=== PATIENT | female | born 1935 | race Caucasian/White ===

== ENCOUNTER 2016-07-12 08:25 | Emergency (ER) | payer MEDICARE, MEDICAID ==
[2016-07-12] MEDS ORDERED: Sodium Chloride 0.9% 1,000 ML IV SCH (08:30)
--- NOTE | 2016-07-12 08:33 | EDM.PDOC ---
Addendum entered and electronically signed by Jose Arshad MD 08/02/16 07 :04: Addendum entered and electronically signed by Jose Arshad MD 07/30/16 20 :24: Addendum entered and electronically signed by Jose Arshad MD 07/20/16 05 :52: Addendum entered and electronically signed by Jose Arshad MD 07/14/16 08 :05: Original Note: ED HPI NEURO - General Chief Complaint: Neurological Problem Stated Complaint: [facility] Time Seen by Provider: 07/12/16 08:28 Source of Information: Reports: EMS notes reviewed, retirement records History Limitations: Reports: Other (unresponsive. ) - History of Present Illness INITIAL COMMENTS - FREE TEXT/NARRATIVE: 80-year-old female presents the ED per [facility]. She was found unresponsive this morning. She appears to have a right-sided hemiparesis compatible with a CVA that occurred sometime during the night. She is unresponsive and nonverbal. She will move her eyes when we lift her eyelids. There is no gaze palsy. She prefers to look to the left side and a poor the right side of her body. Apparently she's had a previous cerebrovascular accident and her CODE STATUS listed as DO NOT RESUSCITATE. Med list as apparent in the old chart although has not been updated does not reveal the reveal her to be on any anticoagulants or antiplatelet inhibitors. Symptom Onset Date: 07/12/16 (CVA appears to have occurred sometime during the night.) Timing/Duration: Reports: Hour(s):, Sudden onset Location (Neuro Complaint): Reports: other Quality (Neuro Complaint): Reports: weakness, other (Nonverbal) Severity: severe Improves with: Reports: None Worsens with: Reports: None Context, General: Denies: Activity, Exercise, Lifting, Sick contact, Trauma, Other Associated Symptoms: Reports: other (No noted spontaneous movements of eyes of the left side either.) Treatments MANAGER PROGRAM MANAGEMENT: Reports: Other (see below) (Patient is nonverbal.) - Related Data Allergies/ADRs: Allergies Allergy/AdvReac Type Severity Reaction Status Date / Time No Known Allergies Allergy Verified 07/12/16 08:30 Home Meds: Home Meds Bisacodyl [Dulcolax] 1 supp RECTAL DAILY PRN 07/26/13 [History] Insulin Aspart [Novolog Flexpen] SQ WMBED 07/26/13 [History] Past Medical History Cardiovascular History: Reports: CAD, Hypertension Endocrine/Metabolic History: Reports: Diabetes, type II (Uses insulin for diabetes control.) Oncologic (Cancer) History: Reports: Breast (Remains on Arimidex daily.) Social & Family History - Tobacco Use Years of Tobacco use: 10 Used Tobacco, but Quit: Yes Month Tobacco Last Used: UNKNOWN Second Hand Smoke Exposure: No - Recreational Drug Use Recreational Drug Use: No - Living Situation & Occupation Living situation: Reports: , extended care facility Occupation: retired ED ROS GENERAL - Review of Systems Review Of Systems: Unable To Obtain (Patient is nonverbal and unresponsive.) ED EXAM, NEURO - Physical Exam Exam: See Below Exam Limited By: Altered mental status General Appearance: other (She is nonverbal and not moving any of her limbs.) Eye Exam: bilateral eye: abnormal EOM (No gaze palsy.) Throat/Mouth: Normal inspection, Normal lips, Normal oropharynx, Other Head Exam: atraumatic, normocephalic, other Neck: normal inspection, supple, non-tender, full range of motion. No: carotid bruit, lymphadenopathy (L), lymphadenopathy (R) Respiratory/Chest: no respiratory distress, lungs clear, normal breath sounds, no accessory muscle use Cardiovascular: no edema, no gallop, no murmur, no rub, irregularly irregular GI/Abdominal: normal bowel sounds, soft, non tender, no organomegaly Neurological: no response to pain, Babinski (Upgoing on the left.) DTR: 0: patella (R), patella (L), achilles (R), achilles (L), 2+: bicep (R), bicep (L) Extremities: normal inspection, normal capillary refill, other (No spontaneous movement on the right side appreciated. Head and drop test is positive on the right side.). No: normal range of motion Skin Exam: Warm, Dry, Intact, Normal color, Pallor (Slightly pallid) EKG INTERPRETATION EKG Date: 07/12/16 Time: 09:15 Rhythm: a-fib (Right nares from 56-75 per minute.) Rate (beats/min): 71 [place]: normal P-wave: absent QRS: normal ST-T: other (Nonspecific flattening and T-wave inversion V4 to V6 one and aVL.) QT: normal Course - Vital Signs Last Recorded V/S: Last Vital Signs Temp 36.9 C 07/12/16 08:31 Pulse 90 07/12/16 08:31 Resp 16 07/12/16 08:31 BP 125/88 07/12/16 08:31 Pulse Ox - Orders/Labs/Meds Orders: Active Orders 24 hr Category Date Time Status Blood Glucose Check, Bedside [RC] ONETIME Care 07/12/16 08:31 Active Blood Glucose Check, Bedside [RC] ONETIME Care 07/12/16 09:45 Active Blood Glucose Check, Bedside [RC] ONETIME Care 07/12/16 10:24 Active EKG Documentation Completion [RC] STAT Care 07/12/16 08:29 Active Oxygen Therapy [RC] ASDIRECTED Care 07/12/16 09:07 Active Chest 1V Frontal [CR] Stat Exams 07/12/16 08:28 Taken CULTURE URINE [RM] Stat Lab 07/12/16 10:01 Received Sodium Chloride 0.9% [Normal Saline] 1,000 ml Med 07/12/16 08:30 Active IV ASDIRECTED Medication Orders Sodium Chloride (Normal Saline) 1,000 mls @ 125 mls/hr IV ASDIRECTED ÓSCAR Last Admin: 07/12/16 09:54 Dose: 125 mls/hr Labs: Laboratory Tests 07/12/16 07/12/16 07/12/16 Range/Units 08:56 09:02 09:02 WBC 9.01 (3.98-10.04) K/mm3 RBC 4.59 (3.98-5.22) M/mm3 Hgb 12.6 (11.2-15.7) gm/L Hct 40.9 (34.1-44.9) % MCV 89.1 (79.4-94.8) fl MCH 27.5 (25.6-32.2) pg MCHC 30.8 L (32.2-35.5) g/dl RDW Std Deviation 46.0 (36.4-46.3) fL Plt Count 226 (182-369) K/mm3 MPV 11.2 (9.4-12.3) fl Neutrophils % (Manual) 74 H (40-60) % Band Neutrophils % 1 (0-10) % Lymphocytes % (Manual) 13 L (20-40) % Atypical Lymphs % 0 % Immat Monocytes % (Man) 0 Monocytes % (Manual) 9 (2-10) % Eosinophils % (Manual) 2 (0.7-5.8) % Basophils % (Manual) 1 (0.1-1.2) Metamyelocytes % 0 Myelocytes % 0 Promyelocytes % 0 Blast Cells % 0 Plasma Cell % (Manual) 0 Nucleated RBCs 0.0 % Platelet Estimate Adequate RBC Morph Comment Normal PT 10.2 (8.0-13.0) SECONDS INR 0.94 APTT (22-36) SECONDS Sodium (136-145) mEq/L Potassium (3.5-5.1) mEq/L Chloride (98-107) mEq/L Carbon Dioxide (21-32) mEq/L Anion Gap (5-15) BUN (7-18) mg/dL Creatinine (0.55-1.02) mg/dL Est Cr Clr Drug Dosing Estimated GFR (MDRD) (>60) mL/min BUN/Creatinine Ratio (14-18) Glucose (83-115) mg/dL POC Glucose 48 L (83-110) mg/dL Calcium (8.5-10.1) mg/dL Total Bilirubin (0.2-1.0) mg/dL AST (15-37) U/L ALT (14-59) U/L Alkaline Phosphatase (46-116) U/L Troponin I (0.00-0.056) ng/mL C-Reactive Protein (<1.0) mg/dL B-Natriuretic Peptide (0-100) pg/mL Total Protein (6.4-8.2) g/dl Albumin (3.4-5.0) g/dl Globulin gm/dL Albumin/Globulin Ratio (1-2) Urine Color (Yellow) Urine Appearance (Clear) Urine pH (5.0-8.0) Ur Specific [place] (1.005-1.030) Urine Protein (Negative) Urine Glucose (UA) (Negative) Urine Ketones (Negative) Urine Occult Blood (Negative) Urine Nitrite (Negative) Urine Bilirubin (Negative) Urine Urobilinogen (0.2-1.0) Ur Leukocyte Esterase (Negative) Urine RBC (0-5) /hpf Urine WBC (0-5) /hpf Ur Squamous Epith Cells (0-5) /hpf Urine Bacteria (FEW) /hpf Urine Mucus (FEW) /hpf 07/12/16 07/12/16 07/12/16 Range/Units 09:02 09:02 09:02 WBC (3.98-10.04) K/mm3 RBC (3.98-5.22) M/mm3 Hgb (11.2-15.7) gm/L Hct (34.1-44.9) % MCV (79.4-94.8) fl MCH (25.6-32.2) pg MCHC (32.2-35.5) g/dl RDW Std Deviation (36.4-46.3) fL Plt Count (182-369) K/mm3 MPV (9.4-12.3) fl Neutrophils % (Manual) (40-60) % Band Neutrophils % (0-10) % Lymphocytes % (Manual) (20-40) % Atypical Lymphs % % Immat Monocytes % (Man) Monocytes % (Manual) (2-10) % Eosinophils % (Manual) (0.7-5.8) % Basophils % (Manual) (0.1-1.2) Metamyelocytes % Myelocytes % Promyelocytes % Blast Cells % Plasma Cell % (Manual) Nucleated RBCs % Platelet Estimate RBC Morph Comment PT (8.0-13.0) SECONDS INR APTT 25 (22-36) SECONDS Sodium 146 H (136-145) mEq/L Potassium 4.7 (3.5-5.1) mEq/L Chloride 110 H (98-107) mEq/L Carbon Dioxide 26 (21-32) mEq/L Anion Gap 14.7 (5-15) BUN 55 H (7-18) mg/dL Creatinine 2.3 H (0.55-1.02) mg/dL Est Cr Clr Drug Dosing TNP Estimated GFR (MDRD) 20 (>60) mL/min BUN/Creatinine Ratio 23.9 H (14-18) Glucose 53 L (83-115) mg/dL POC Glucose (83-110) mg/dL Calcium 9.4 (8.5-10.1) mg/dL Total Bilirubin 0.2 (0.2-1.0) mg/dL AST 17 (15-37) U/L ALT 21 (14-59) U/L Alkaline Phosphatase 68 (46-116) U/L Troponin I < 0.017 (0.00-0.056) ng/mL C-Reactive Protein 16.0 H* (<1.0) mg/dL B-Natriuretic Peptide 582 H (0-100) pg/mL Total Protein 7.6 (6.4-8.2) g/dl Albumin 2.9 L (3.4-5.0) g/dl Globulin 4.7 gm/dL Albumin/Globulin Ratio 0.6 L (1-2) Urine Color (Yellow) Urine Appearance (Clear) Urine pH (5.0-8.0) Ur Specific [place] (1.005-1.030) Urine Protein (Negative) Urine Glucose (UA) (Negative) Urine Ketones (Negative) Urine Occult Blood (Negative) Urine Nitrite (Negative) Urine Bilirubin (Negative) Urine Urobilinogen (0.2-1.0) Ur Leukocyte Esterase (Negative) Urine RBC (0-5) /hpf Urine WBC (0-5) /hpf Ur Squamous Epith Cells (0-5) /hpf Urine Bacteria (FEW) /hpf Urine Mucus (FEW) /hpf 07/12/16 07/12/16 07/12/16 Range/Units 09:38 10:01 10:29 WBC (3.98-10.04) K/mm3 RBC (3.98-5.22) M/mm3 Hgb (11.2-15.7) gm/L Hct (34.1-44.9) % MCV (79.4-94.8) fl MCH (25.6-32.2) pg MCHC (32.2-35.5) g/dl RDW Std Deviation (36.4-46.3) fL Plt Count (182-369) K/mm3 MPV (9.4-12.3) fl Neutrophils % (Manual) (40-60) % Band Neutrophils % (0-10) % Lymphocytes % (Manual) (20-40) % Atypical Lymphs % % Immat Monocytes % (Man) Monocytes % (Manual) (2-10) % Eosinophils % (Manual) (0.7-5.8) % Basophils % (Manual) (0.1-1.2) Metamyelocytes % Myelocytes % Promyelocytes % Blast Cells % Plasma Cell % (Manual) Nucleated RBCs % Platelet Estimate RBC Morph Comment PT (8.0-13.0) SECONDS INR APTT (22-36) SECONDS Sodium (136-145) mEq/L Potassium (3.5-5.1) mEq/L Chloride (98-107) mEq/L Carbon Dioxide (21-32) mEq/L Anion Gap (5-15) BUN (7-18) mg/dL Creatinine (0.55-1.02) mg/dL Est Cr Clr Drug Dosing Estimated GFR (MDRD) (>60) mL/min BUN/Creatinine Ratio (14-18) Glucose (83-115) mg/dL POC Glucose 213 H 159 H (83-110) mg/dL Calcium (8.5-10.1) mg/dL Total Bilirubin (0.2-1.0) mg/dL AST (15-37) U/L ALT (14-59) U/L Alkaline Phosphatase (46-116) U/L Troponin I (0.00-0.056) ng/mL C-Reactive Protein (<1.0) mg/dL B-Natriuretic Peptide (0-100) pg/mL Total Protein (6.4-8.2) g/dl Albumin (3.4-5.0) g/dl Globulin gm/dL Albumin/Globulin Ratio (1-2) Urine Color Yellow (Yellow) Urine Appearance Clear (Clear) Urine pH 5.5 (5.0-8.0) Ur Specific [place] 1.025 (1.005-1.030) Urine Protein 1+ H (Negative) Urine Glucose (UA) Trace H (Negative) Urine Ketones Negative (Negative) Urine Occult Blood Trace-lysed H (Negative) Urine Nitrite Positive H (Negative) Urine Bilirubin Negative (Negative) Urine Urobilinogen 0.2 (0.2-1.0) Ur Leukocyte Esterase 1+ H (Negative) Urine RBC 0-5 (0-5) /hpf Urine WBC 0-5 (0-5) /hpf Ur Squamous Epith Cells 0-5 (0-5) /hpf Urine Bacteria Few (FEW) /hpf Urine Mucus Few (FEW) /hpf Meds: Medications Generic Name Dose Route Start Last Admin Trade Name Freq PRN Reason Stop Dose Admin Sodium Chloride 1,000 mls @ 125 mls/hr 07/12/16 08:30 07/12/16 09:54 Normal Saline IV 125 mls/hr ASDIRECTED ÓSCAR Administration Discontinued Medications Generic Name Dose Route Start Last Admin Trade Name Lexie PRN Reason Stop Dose Admin Dextrose/Water 50 ml 07/12/16 08:58 07/12/16 09:02 Dextrose 50% In Water IVPUSH 07/12/16 08:59 50 ml ONETIME ONE Administration Dextrose/Water Confirm 07/12/16 09:00 07/12/16 09:49 Dextrose 50% In Water Administered 07/12/16 09:01 Not Given Dose 50 ml .ROUTE .[facility] ONE - Radiology Interpretation Free Text/Narrative:: 80-year-old female presents the ED per ambulance. She was found unresponsive this morning upon awakening. Appears that she has suffered a CVA during the night. She seems right hemiparesis on exam. She is unresponsive nonverbal and is not moving any of her body parts. She does not have a gaze palsy. Previous iridectomy right eye. Plan CT head routine labs ECG and a bedside blood sugar to be done. CODE STATUS is DO NOT RESUSCITATE. IV will be normal saline at 125 mils per hour and we will invoke compassionate terminal care. - Re-Assessments/Exams Free Text/Narrative Re-Assessment/Exam: 07/12/16 08:59 CT of the brain reveals advanced degenerative changes. There is no intracranial hemorrhage. There appears to be an old ilacnar nfarct in the right basal ganglia. No new infarction or edema is evident. No midline shift or densities are seen. There is an air-fluid level noted within the left maxillary sinus with mucosal thickening. Minimal mucosal thickening is noted within the left ethmoid sinus as well. Chest x-ray is a poor inspirational view. Visualized portions of the lung eid appear clear. Osseous informed at her bedside blood sugars 48. She will therefore be given an amp of D50 IV. We will try and gather when she last received her insulin dosage. Admitting note she has a chronic right arm paresis. She was ambulatory though up until this morning. 07/12/16 09:08 she last received her Levemir insulin last evening. Shows minimal response to the first amp of dextrose. Blood sugar will be repeated in one half hour 07/12/16 09:46 Blood sugar at this time is 213. She has not showed any significant improvement in neurological status. 07/12/16 09:50 remainder of her labs are now back. White count was 9.01 with hemoglobin 12.6 a hematocrit of 40.9. Platelets are 226,000. PT is 10.2 INR 0.94 PTT is 25 sodium is 146 potassium 4.7 chloride 110. Bicarbonate is 26 BUN is 55 creatinine is 2.3. EGFR is only 20 i.e. stage IV chronic kidney disease. Troponin was normal at 0.017 and albumin fractures low 2.9. Awaiting urinalysis. 07/12/16: Urinalysis shows nitrate positivity trace of red cells trace leukocyte esterase. However the micro-reveals no signs of infection. Her condition remains on changed after dextrose IV. Last blood sugar was one 159 at 10:30. She remains comatose. I suspect she has had a thrombotic stroke that is not showing up on CT scan. The remainder of her labs are normal. She is a DO NOT RESUSCITATE status and therefore she will be returned back to the prison for compassionate [facility] care. Hospital itself is nothing to offer her in regards to further acute care. It is anticipated that she will succumb to her current illness within the next 72 hours. Her primary care physician has been made aware of this. 07/12/16 10:22 Differential is back on the white count shows 74% neutrophils 1% band cells. Urinalysis shows positive nitrates trace lysed red cells and trace leukocyte esterase but no white cells or red cells reported micro-. Plan the patient will be discharged back to the prison for compassionate patrician terminal care. I will discuss case with her primary care physician Dr. Black. I did write a sliding scale further use of NovoLog insulin subcutaneously as needed. Departure - Departure Time of Disposition: 11:01 Disposition: DC/Tfer to Care Home [facility] Condition: critical Clinical Impression: Dementia associated with another disease, Diabetes mellitus type 2 Cerebrovascular accident Qualifiers: CVA mechanism: unspecified Qualified Code(s): I63.9 - Cerebral infarction, unspecified Instructions: Stroke Prevention Referrals: Kostas Fleming MD [Primary Care Provider] - Forms: ED Department Discharge Additional Instructions: Evaluation in the emergency room today in regards to arrival in an unresponsive state. Finding bedside blood sugar was 48. She was given an amp of D50 which prior blood sugars above over 250 but that is no real change in her mental status. CT scan of the brain showed no obvious intracranial hemorrhage or bleeding. It's impossible this stage to tell if there is a new stroke evident. There is a lacunar infarct in the right basal ganglia and severe diffuse small vessel ischemic changes compatible with dementia. Lab work was otherwise unremarkable. Was felt therefore that the hospital had very little to offer in terms of acute care management. Have spoken with her primary care physician Dr. Alvarado the decision made to return to the prison for compassionate terminal care. I will modify all of her medications most of which will be put on hold . Insulin will be given by sliding scale NovoLog. There will be placed on home. Please call Dr. Alvarado per on-call physician for the prison to keep the problems occur. NovoLog to be given per sliding scale as per wriiten orders. - My Orders Last 24 Hours: My Active Orders 07/12/16 08:28 Chest 1V Frontal [CR] Stat 07/12/16 08:29 EKG Documentation Completion [RC] STAT 07/12/16 08:30 Sodium Chloride 0.9% [Normal Saline] 1,000 ml IV ASDIRECTED 07/12/16 08:31 Blood Glucose Check, Bedside [RC] ONETIME 07/12/16 09:07 Oxygen Therapy [RC] ASDIRECTED 07/12/16 09:45 Blood Glucose Check, Bedside [RC] ONETIME 07/12/16 10:01 CULTURE URINE [RM] Stat 07/12/16 10:24 Blood Glucose Check, Bedside [RC] ONETIME - Assessment/Plan Last 24 Hours: My Active Orders 07/12/16 08:28 Chest 1V Frontal [CR] Stat 07/12/16 08:29 EKG Documentation Completion [RC] STAT 07/12/16 08:30 Sodium Chloride 0.9% [Normal Saline] 1,000 ml IV ASDIRECTED 07/12/16 08:31 Blood Glucose Check, Bedside [RC] ONETIME 07/12/16 09:07 Oxygen Therapy [RC] ASDIRECTED 07/12/16 09:45 Blood Glucose Check, Bedside [RC] ONETIME 07/12/16 10:01 CULTURE URINE [RM] Stat 07/12/16 10:24 Blood Glucose Check, Bedside [RC] ONETIME
[2016-07-12] MEDS ORDERED: 50% Dextrose in Water 50 ML Syringe IVPUSH ONE (08:58)
[2016-07-12] MEDS ORDERED: 50% Dextrose in Water 50 ML Syringe ONE (09:00)
--- NOTE | 2016-07-12 09:08 | CT ---
Head CT Technique: Multiple axial sections through the brain were obtained. Intravenous contrast was not utilized. Comparison: Previous head CT exam of 06/15/12. Findings: Ventricles along with basal cisterns and sulci over the convexities are moderately prominent. Diminished density noted within portions of the periventricular and subcortical white matter compatible with small vessel ischemic demyelination change. Old lacunar infarct is noted within the right basal ganglia. No other abnormal parenchymal densities are seen. No evidence of intracranial hemorrhage. No midline shift or mass effect is seen. Bone window settings were reviewed which shows no acute calvarial abnormality. Air-fluid level noted within the left maxillary sinus with mucosal thickening. Mild mucosal thickening is noted within the left ethmoid sinus. Visualized mastoid sinuses and middle ear cavities are clear. Impression: 1. Air-fluid level and mucosal thickening within the left maxillary sinus as well as mild mucosal thickening within the left ethmoid sinus. Cannot exclude acute sinusitis. 2. Senescent change as noted above which has slightly progressed from previous head CT. 3. No acute intracranial abnormality is identified on noncontrast head CT study. Diagnostic code #2
[2016-07-12 11:20] VITALS: BP 125/78
--- NOTE | 2016-07-14 07:59 | CR ---
Chest: Portable view of the chest was obtained. Comparison: Previous chest x-ray of 06/15/12. Hiatal hernia is seen. Heart size at the upper limits of normal. Mild scattered areas of atelectasis believed to be present. No definite acute appearing infiltrates are seen. Bony structures are grossly intact. Impression: 1. Findings felt to be incidental as described above. Nothing acute is definitely appreciated. Diagnostic code #2
== END 2016-07-12 11:31 ==
LOC: SUPCPDRO 08:25 → JD.ED 08:25
DX: I69.351 Hemiplegia and hemiparesis following cerebral infarction affecting right dominant side (principal); I25.10 Atherosclerotic heart disease of native coronary artery without angina pectoris; I10 Essential (primary) hypertension; E11.9 Type 2 diabetes mellitus without complications; F03.90 Unspecified dementia, unspecified severity, without behavioral disturbance, psychotic disturbance, mood disturbance, and anxiety; Z79.4 Long term (current) use of insulin; Z85.3 Personal history of malignant neoplasm of breast; Z66 Do not resuscitate; Z51.5 Encounter for palliative care; R41.82 Altered mental status, unspecified
CPT/HCPCS: 36415; 70450; 71010; 80053; 81001; 82962; 83880; 84484; 85025; 85610; 85730; 86140; 87086; 87088; 87186; 93005; 94762; 96361; 96374; 99285; J7040; J7060